=== PATIENT | male | born 1980 | race African-American/Black ===

== ENCOUNTER 2021-08-13 15:06 | Emergency (ER) | payer BC ==
[~2021-08-13] VITALS: Ht 165.1 cm; Wt 85.7 kg
[2021-08-13] MEDS ORDERED: SOTROVIMAB 500 MG in SODIUM CHLORIDE 0.9% 100 ML IV ONE (15:15)
== END 2021-08-13 18:05 | disposition home or self-care (01) ==
LOC: ER 15:12
DX: U07.1 COVID-19 (principal); R05.9 Cough, unspecified; E11.9 Type 2 diabetes mellitus without complications; J45.909 Unspecified asthma, uncomplicated
CPT/HCPCS: 99283